=== PATIENT | female | born 1965 | race Hispanic/Latino ===

== ENCOUNTER 2019-04-05 12:56 | Emergency (ER) | payer OTHER ==
[~2019-04-05 12:56] MED LIST: AMOX-426 PO; METR500T PO
[2019-04-05] MEDS ORDERED: KETOROLAC TROMETHAMINE 60 MG/2 ML VIAL ONE (13:55)
[2019-04-05] MEDS ORDERED: ONDANSETRON ODT 4 MG TAB ONE (13:56)
[2019-04-05 14:00] LABS: BASOPHILS % (AUTO) 0.3 % (0.0-5.0); EOSINOPHILS % (AUTO) 0.4 % (0.0-8.0); HEMATOCRIT 40.6 % (36-48); LYMPHOCYTES % (AUTO) 12.9 % (21.0-51.0); MEAN CORPUSCULAR HEMOGLOBIN 24.4 pg (27.0-33.0); MEAN CORPUSCULAR HGB CONC 30.3 g/dL (32.0-36.0); MEAN CORPUSCULAR VOLUME 80.6 fL (79-99); MONOCYTES % (AUTO) 4.1 % (3.0-13.0); PLATELET COUNT (AUTO) 324 K/uL (130-400); RED BLOOD CELL COUNT(AUTO) 5.04 MIL/uL (4.00-5.50); RED CELL DISTRIBUTION WIDTH 14.7 % (11.0-15.5); WHITE BLOOD COUNT (AUTO) 14.3 K/uL (4.8-10.8)
[2019-04-05 14:09] LABS: CREATININE 0.9 mg/dL (0.5-1.5); POTASSIUM 4.7 mmol/L (3.5-5.1)
[2019-04-05 14:12] LABS: APPEARANCE,URINE Turbid (CLEAR); BILIRUBIN,URINE Negative (NEGATIVE); COLOR,URINE Yellow (YELLOW); GLUCOSE, URINE (UA) Negative (NEGATIVE); KETONES,URINE 15 mg/dL (NEGATIVE); LEUKOCYTE ESTERASE ,URINE Negative (NEGATIVE); NITRATE,URINE Negative (NEGATIVE); OCCULT BLOOD,URINE Moderate (NEGATIVE); PH,URINE 7.5 (5.0-8.0); PROTEIN,URINE Trace mg/dL (NEGATIVE)
[2019-04-05 14:14] LABS: ALBUMIN 4.1 g/dL (3.5-5.0); BILIRUBIN,TOTAL 0.3 mg/dL (0.2-1.0); TOTAL PROTEIN, SERUM 8.5 g/dL (6.0-8.3)
[2019-04-05 14:35] LABS: BACTERIA,URINE Few /HPF (None Seen); SQUAMOUS EPITHELIAL CELL,UR Rare /HPF (0-2); WBC,URINE 0-1 /HPF (0-1)
== END 2019-04-05 17:59 | disposition home or self-care (01) ==
LOC: EDH 12:56
DX: N13.2 Hydronephrosis with renal and ureteral calculous obstruction (principal); I10 Essential (primary) hypertension; E78.00 Pure hypercholesterolemia, unspecified; Z90.49 Acquired absence of other specified parts of digestive tract; Z98.890 Other specified postprocedural states
CPT/HCPCS: 36415; 74176; 80053; 81001; 83690; 85025; 96372; 99284; J1885

== ENCOUNTER 2019-08-07 00:25 | Emergency (ER) | payer OTHER ==
[2019-08-07] MEDS ORDERED: SODIUM CHLORIDE 0.9% 1000ML 1,000 ML IV ONE (00:42)
[2019-08-07] MEDS ORDERED: ONDANSETRON HCL 4 MG/2 ML VIAL ONE (00:42)
[2019-08-07 00:50] LABS: APPEARANCE,URINE Clear (CLEAR); BILIRUBIN,URINE Negative (NEGATIVE); COLOR,URINE Yellow (YELLOW); GLUCOSE, URINE (UA) Negative (NEGATIVE); KETONES,URINE Negative (NEGATIVE); LEUKOCYTE ESTERASE ,URINE Negative (NEGATIVE); NITRATE,URINE Negative (NEGATIVE); OCCULT BLOOD,URINE Nonhemolyzed Trace (NEGATIVE); PH,URINE 6.5 (5.0-8.0); PROTEIN,URINE Negative (NEGATIVE)
[2019-08-07 00:55] LABS: BASOPHILS % (AUTO) 0.4 % (0.0-5.0); EOSINOPHILS % (AUTO) 1.1 % (0.0-8.0); HEMATOCRIT 39.3 % (36-48); LYMPHOCYTES % (AUTO) 14.4 % (21.0-51.0); MEAN CORPUSCULAR HEMOGLOBIN 24.7 pg (27.0-33.0); MEAN CORPUSCULAR HGB CONC 30.8 g/dL (32.0-36.0); MEAN CORPUSCULAR VOLUME 80.4 fL (79-99); MONOCYTES % (AUTO) 3.8 % (3.0-13.0); PLATELET COUNT (AUTO) 323 K/uL (130-400); RED BLOOD CELL COUNT(AUTO) 4.89 MIL/uL (4.00-5.50); RED CELL DISTRIBUTION WIDTH 14.5 % (11.0-15.5); WHITE BLOOD COUNT (AUTO) 16.3 K/uL (4.8-10.8)
[2019-08-07 01:08] LABS: BACTERIA,URINE Rare /HPF (None Seen); SQUAMOUS EPITHELIAL CELL,UR None Seen /HPF (0-2); WBC,URINE 0-1 /HPF (0-1)
[2019-08-07 01:21] LABS: ALBUMIN 3.9 g/dL (3.5-5.0); BILIRUBIN,DIRECT 0.1 mg/dL (0.0-0.3); BILIRUBIN,TOTAL 0.3 mg/dL (0.2-1.0); POTASSIUM 4.3 mmol/L (3.5-5.1); TOTAL PROTEIN, SERUM 8.1 g/dL (6.0-8.3)
[2019-08-07] MEDS ORDERED: FENTANYL CITRATE PF 50 MCG/1 ML 2ML VIAL ONE (01:52)
== END 2019-08-07 02:53 | disposition home or self-care (01) ==
LOC: EDH 00:25
DX: N13.2 Hydronephrosis with renal and ureteral calculous obstruction (principal); R11.2 Nausea with vomiting, unspecified; I10 Essential (primary) hypertension; E78.5 Hyperlipidemia, unspecified; Z88.6 Allergy status to analgesic agent; Z85.3 Personal history of malignant neoplasm of breast; Z90.49 Acquired absence of other specified parts of digestive tract; Z98.890 Other specified postprocedural states
CPT/HCPCS: 36415; 74176; 80048; 80076; 81001; 82550; 83690; 84484; 85025; 93005; 96361; 96374; 96375; 99285; J2405; J3010; J7030

== ENCOUNTER 2024-04-19 17:38 | Observation (INO) | payer BC, OTHER ==
[~2024-04-19] VITALS: Ht 149.9 cm; Wt 67.1 kg
--- NOTE | 2024-04-19 17:38 | NUR ---
EKG PERFORMED AT TIME OF TRIAGE
[2024-04-19 18:08] LABS: BASOPHILS # (AUTO) 0.05 K/uL (0.00-0.20); BASOPHILS % (AUTO) 0.4 % (0.0-5.0); EOSINOPHILS % (AUTO) 4.3 % (0.0-8.0); HEMATOCRIT 43.7 % (36-48); IMMATURE GRANULOCYTE ABSOLUTE 0.02 K/uL (0-1); LYMPHOCYTES # (AUTO) 5.3 K/uL (1.0-4.8); LYMPHOCYTES % (AUTO) 45.9 % (21.0-51.0); MEAN CORPUSCULAR HEMOGLOBIN 26.2 pg (27.0-33.0); MEAN CORPUSCULAR HGB CONC 30.7 g/dL (32.0-36.0); MEAN CORPUSCULAR VOLUME 85.4 fL (79-99); MONOCYTES # (AUTO) 0.7 K/uL (0.1-1.0); MONOCYTES % (AUTO) 6.3 % (3.0-13.0); NEUTROPHILS % (AUTO) 42.9 % (40.0-77.0); PLATELET COUNT (AUTO) 300 K/uL (130-400); RED BLOOD CELL COUNT(AUTO) 5.12 MIL/uL (4.00-5.50); RED CELL DISTRIBUTION WIDTH 14.2 % (11.0-15.5); WHITE BLOOD COUNT (AUTO) 11.6 K/uL (4.8-10.8)
[2024-04-19 18:14] LABS: CREATININE 0.6 mg/dL (0.5-1.0); POTASSIUM 3.3 mmol/L (3.5-5.1)
[2024-04-19 18:28] LABS: B-TYPE NATRIURETIC PEPTIDE 20 pg/mL (0-100)
[2024-04-19 18:30] LABS: MAGNESIUM 1.8 mg/dL (1.80-2.40)
--- NOTE | 2024-04-19 18:31 | ERN ---
General Chief Complaint: Abnormal Labs Stated Complaint: ABNORMAL EKG Time Seen by MD: 17:55 Source: patient History of Present Illness Initial Comments PATIENT IS A 59-YEAR-OLD FEMALE COMING IN TO BE EVALUATED BECAUSE HER PRIMARY CARE PHYSICIAN SENT HER IN. PER PATIENT SHE WAS SEEN BY HER PRIMARY CARE PHYSICIAN AND TOLD TO SEEK IMMEDIATE HELP WITH THE NEAREST ER. SHE WAS TOLD THAT THERE WAS ABNORMAL EKG SIGNIFICANT FOR AN MYOCARDIAL INFARCT. PATIENT WAS NOT HAVING ANY CHEST PAIN BUT DID HAVE TWO EPISODES OF NEAR-SYNCOPE IN THE PAST MONTH. Allergies: Coded Allergies: hydrocodone (Unverified Allergy, Mild, ITCHING, 06/28/14) ibuprofen (Unverified Allergy, Unknown, 08/07/19) Home Meds Active Scripts Metronidazole (Flagyl) 500 Mg Tablet, 500 MG PO BID, #14 TAB Prov:SISI QUIÑONES MD 06/30/14 Amoxicillin/Potassium Clav (Augmentin 500-125 Tablet) 1 Each Tablet, 1 EACH PO BID, #14 TAB Prov:SISI QUIÑONES MD 06/30/14 Past Medical History Past Medical History: Diabetes-Type II, High Cholesterol, Hypertension Past Surgical History: Appendectomy, Cholecystectomy, Other, Surgical History Other: LEFT BREAST, ROS Dictation CONSTITUTIONAL: NO CHILLS, NO FEVER, NO WEAKNESS, NO DIAPHORESIS, NO MALAISE. HEAD/FACE: NO SIGNS OF TRAUMA. EENT: NO EYE PAIN, NO BLURRED VISION, NO TEARING, NO DOUBLE VISION, NO EAR PAIN, NO EAR DISCHARGE, NO NOSE PAIN, NO NASAL CONGESTION, NO THROAT PAIN, NO THROAT SWELLING, NO MOUTH PAIN. RESPIRATORY: NO COUGH, NO ORTHOPNEA, NO SOB, NO STRIDOR, NO WHEEZING. CARDIOVASCULAR: NO CHEST PAIN, NO EDEMA, NO PALPITATIONS, NO SYNCOPE. GASTROINTESTINAL/ABDOMINAL: NO ABDOMINAL PAIN, NO CONSTIPATION, NO DIARRHEA, NO NAUSEA, NO VOMITING. GENITOURINARY: NO ABNORMAL DISCHARGE, NO DYSURIA, NO FREQUENT URINATION, NO HEMATURIA. NO COMPLAINTS OF PAIN IN THE GENITALS. MUSCULOSKELETAL: NO BACK PAIN, NO GOUT, NO JOINT PAIN, NO JOINT SWELLING, NO MUSCLE PAIN, NO MUSCLE STIFFNESS, NO NECK PAIN. INTEGUMENTARY: NO CHANGE IN COLOR, NO CHANGE IN HAIR/NAILS, NO DRYNESS, NO LESION, NO LUMPS, NO RASH. NEUROLOGICAL/PSYCH: NO ANXIETY, NOT DEPRESSED, NO EMOTIONAL PROBLEM, NO H EADACHE, NO NUMBNESS, NO PRE-EXISTING DEFICIT, NO HISTORY OF SEIZURES, NO TREMORS, NO WEAKNESS. HEMATOLOGIC/LYMPHATIC: NOT ANEMIC, NO HISTORY OF BLOOD CLOTS, NO APPARENT BLEEDING, NO BRUISING, GLANDS NOT SWOLLEN. ALL SYSTEMS NEGATIVE, EXCEPT NOTED. Physical Exam Physical Exam Dictation VITAL SIGNS: REVIEWED. GENERAL APPEARANCE: ALERT, ORIENTED X3, NO ACUTE DISTRESS, OBESE. HEAD AND FACE: NON-TRAUMATIC. EYES: PERRL, PINK CONJUNCTIVAS, EYELID NO TRAUMA, ANTERIOR CHAMBER CLEAR. EARS: PINNAS INTACT AND NO SIGNS OF TRAUMA OR ERYTHEMA. EAR CANALS CLEAR AND NO DISCHARGE. TMS NO ERYTHEMA. NOSE: NO DISCHARGE, NO BLEEDING. OROPHARYNX: MOUTH NORMAL, TEETH NO CARIES, TONGUE PINK. PHARYNX CLEAR, NO ERYTHEMA. TONSILS NO EXUDATES, NO ABSCESSES NOTED. MUCOUS MEMBRANE MOIST. NECK: SUPPLE, NON-TENDER, NO THYROMEGALY, NO MASSES, NO JVD, NO BRUITS. BREAST: DEFERRED. CHEST: NO TENDERNESS, NO CREPITUS, NO PARADOXICAL MOVEMENT, NO RETRACTIONS. LUNGS: CLEAR, WELL-VENTILATED, SYMMETRIC, NO RALES, NO WHEEZING, NO RHONCHI, NO STRIDOR, GOOD BREATH SOUNDS BILATERALLY. HEART: REGULAR RATE, REGULAR RHYTHM, NO MURMUR, NO GALLOPS. VASCULAR: NO PERIPHERAL EDEMA. ABDOMEN: SOFT, POSITIVE BOWEL SOUNDS, NONDISTENDED, NO GUARDING, NONTENDER, NO REBOUND, NO MASSES NO HEPATOMEGALY, NO SPLENOMEGALY, NO HERNANDEZ'S SIGN, NO HERNIAS. RECTAL: DEFERRED. GENITAL: DEFERRED. NEUROLOGICAL: NORMAL SPEECH, GROSS MOTOR FUNCTION INTACT, GROSS SENSORY FUNCTION INTACT. MUSCULOSKELETAL: NECK NONTENDER, FULL RANGE OF MOTION, BACK NONTENDER, FULL RANGE OF MOTION. EXTREMITIES: NONTENDER, FULL RANGE OF MOTION. SKIN: COLOR PINK, DRY, NO TURGOR, NO RASH, NO LACERATIONS, NO ABRASIONS, NO CONTUSIONS. LYMPHATICS: DEFERRED. Results Laboratory and Microbiology Lab and Micro Result Laboratory Tests Test 04/19/24 17:58 04/19/24 18:00 White Blood Count 11.6 K/uL (4.8-10.8) H Red Blood Count 5.12 MIL/uL (4.00-5.50) Hemoglobin 13.4 g/dL (12.0-16.0) Hematocrit 43.7 % (36-48) Mean Corpuscular Volume 85.4 fL (79-99) Mean Corpuscular Hemoglobin 26.2 pg (27.0-33.0) L Mean Corpuscular Hemoglobin Concent 30.7 g/dL (32.0-36.0) L Red Cell Distribution Width 14.2 % (11.0-15.5) Platelet Count 300 K/uL (130-400) Mean Platelet Volume 10.7 fL (7.5-10.5) H Immature Granulocyte % (Auto) 0.2 % (0-1) Neutrophils (%) (Auto) 42.9 % (40.0-77.0) Lymphocytes (%) (Auto) 45.9 % (21.0-51.0) Monocytes (%) (Auto) 6.3 % (3.0-13.0) Eosinophils (%) (Auto) 4.3 % (0.0-8.0) Basophils (%) (Auto) 0.4 % (0.0-5.0) Neutrophils # (Auto) 5.0 K/uL (1.8-7.7) Lymphocytes # (Auto) 5.3 K/uL (1.0-4.8) H Monocytes # (Auto) 0.7 K/uL (0.1-1.0) Eosinophils # (Auto) 0.50 K/uL (0.00-0.70) Basophils # (Auto) 0.05 K/uL (0.00-0.20) Absolute Immature Granulocyte (auto 0.02 K/uL (0-1) Nucleated Red Blood Cells 0.0 % (0.0-0.19) Sodium Level 139 mmol/L (136-145) Potassium Level 3.3 mmol/L (3.5-5.1) L Chloride Level 102 mmol/L (101-111) Carbon Dioxide Level 31 mmol/L (21-32) Blood Urea Nitrogen 22 mg/dL (7-18) H Creatinine 0.6 mg/dL (0.5-1.0) Glomerular Filtration Rate Calc 102 mL/min (>90) Random Glucose 102 mg/dL (70-105) Total Calcium 9.0 mg/dL (8.5-10.1) Magnesium Level 1.80 mg/dL (1.80-2.40) Troponin I High Sensitivity < 4 ng/L (4-50) L B-Type Natriuretic Peptide 20 pg/mL (0-100) Urine Color LIGHT-YELLOW (YELLOW) Urine Appearance CLEAR (CLEAR) Urine pH 6.5 (5.0-8.0) Urine Specific [place] 1.014 (1.001-1.031) Urine Protein NEGATIVE mg/dL (NEGATIVE) Urine Glucose (UA) NEGATIVE mg/dL (NEGATIVE) Urine Ketones NEGATIVE mg/dL (NEGATIVE) Urine Occult Blood NEGATIVE (NEGATIVE) Urine Nitrate NEGATIVE (NEGATIVE) Urine Bilirubin NEGATIVE mg/dL (NEGATIVE) Urine Urobilinogen 0.2 mg/dL (0.2-1.0) Urine Leukocyte Esterase 25 Sheryl/uL (NEGATIVE) H Urine RBC 0-1 /HPF (0-1) Urine WBC 2-5 /HPF (0-1) H Urine Squamous Epithelial Cells RARE /HPF (0-2) Urine Bacteria RARE /HPF (None Seen) Labs Reviewed?: Yes EKG/XRAY/US/CT/MRI EKG Comment 04/19/2024 TIME 5:37 P.M. VENTRICULAR RATE [address] [place] [address] WAVE ELEVATION OR DEPRESSION MDM MDM: DIFFERENTIAL DIAGNOSIS: NEAR-SYNCOPE, EKG CHANGES, MULTIPLE PVCS, RATIONALE: TESTS CONSIDERED AND ORDERED SECONDARY TO SHARED DECISION MAKING INCLUDE: LABS, ECG AND RADIOLOGY PREVIOUS OUTSIDE RECORDS REVIEWED: OLD ER VISITS. RISK OF COMPLICATION AND/OR MORBIDITY OR MORTALITY OF PATIENT MANAGEMENT: NONE MEDICATIONS-PER MEDICATION RECONCILIATION NEED FOR HOSPITALIZATION: PATIENT DOES MEET CRITERIA FOR HOSPITALIZATION. NEED FOR EMERGENCY MAJOR/MINOR SURGERY: NO THERE ARE NO SOCIAL CONCERNS WITH THIS PATIENT. PRESCRIPTION DRUG MANAGEMENT PRESCRIPTIONS WILL INCLUDE SYMPTOMATIC CARE PATIENT'S PRIOR EXTERNAL MEDICAL RECORDS FROM OTHER ER VISITS WERE REVIEWED BY ME INDICATED. PRIOR TESTING AND RESULTS FROM PREVIOUS VISITS WERE REVIEWED. PRIOR TESTS WERE TAKEN INTO ACCOUNT WITH MEDICAL DECISION MAKING AND RESOURCE UTILIZATION, INDEPENDENT HISTORIAN/HISTORIANS WERE USED TO OBTAIN COMPLETE MEDICAL HISTORY. I INDEPENDENTLY INTERPRETED THE TEST THAT WERE PERFORMED, RESULTS WERE REVIEWED BY ME AND CONSIDERED FINDINGS ON RADIOLOGY IF ORDERED. MEDICAL MANAGEMENT AND EXAMINATION INTERPRETATION DISCUSSIONS WERE HAD BY ME WITH OTHER QUALIFIED HEALTHCARE PROFESSIONALS INDICATED FOR THE PATIENT'S CARE. PATIENT IS A 59-YEAR-OLD FEMALE SENT BY PCP FOR AN ABNORMAL EKG. PER PATIENT SHE WAS SENT OVER DUE TO AN ABNORMAL EKG WHICH COULD REPRESENT AN RI. EKG DID NOT DISCLOSE ACUTE FINDINGS. PATIENT WILL BE ADMITTED UNDER THE CARE OF [facility] FOR ONGOING MANAGEMENT. ED Course Orders Procedure Category Date Status Time Cbc With Differential LAB 04/19/24 In Process 17:49 Basic Metabolic Panel LAB 04/19/24 Complete 17:49 12 Lead Ekg Tracing- EKG 04/19/24 Logged Technical 17:49 Troponin I High LAB 04/19/24 Complete Sensitivity 17:49 Chest 1vw RAD 04/19/24 Taken 17:49 B-Type Natriuretic LAB 04/19/24 In Process Peptide 17:49 Magnesium LAB 04/19/24 Complete 17:49 Urinalysis Profile LAB 04/19/24 Complete 18:03 Manual Differential LAB 04/19/24 In Process 17:58 Potassium Bicarb/Cit PHA 04/19/24 Logged Ac 25meq (K-Lyte Ta 19:00 Current Medications Medications (Trade) Dose Ordered Sig/Giancarlo Route PRN Reason Start Time Stop Time Status Last Admin Dose Admin Potassium Bicarbonate (K-Lyte Tablet Eff 25 Meq Tablet.eff) 50 meq ONCE ONCE PO 04/19/24 19:00 04/19/24 19:01 UNV Vital Signs Date Time Temp Pulse Resp B/P (MAP) Pulse Ox O2 Delivery O2 Flow Rate FiO2 04/19/24 18:31 97.9 84 19 144/79 98 Room Air* 0 21 04/19/24 18:02 82 16 140/80 98 Room Air* 0 21 04/19/24 17:40 98.1 89 16 168/87 97 Room Air DX & DISP Disposition: Inpatient Decision to Admit Time: 18:47 Departure Impression: Primary Impression: Near syncope Additional Impressions: Acute electrocardiogram changes, Urinary tract infection, site not specified Condition: Stable Referrals: KIKE ALVA (PCP) VIKAS POOLE MD Apr 19, 2024 18:30
[2024-04-19 18:42] LABS: APPEARANCE,URINE CLEAR (CLEAR); BILIRUBIN,URINE NEGATIVE (NEGATIVE); COLOR,URINE LIGHT-YELLOW (YELLOW); GLUCOSE, URINE (UA) NEGATIVE (NEGATIVE); KETONES,URINE NEGATIVE (NEGATIVE); LEUKOCYTE ESTERASE ,URINE 25 Leu/uL (NEGATIVE); NITRATE,URINE NEGATIVE (NEGATIVE); OCCULT BLOOD,URINE NEGATIVE (NEGATIVE); PH,URINE 6.5 (5.0-8.0); PROTEIN,URINE NEGATIVE (NEGATIVE); UROBILINOGEN,URINE 0.2 mg/dL (0.2-1.0)
[2024-04-19 18:43] LABS: ADD UA MICROSCOPIC YES
[2024-04-19 18:45] LABS: BACTERIA,URINE RARE /HPF (None Seen); MUCUS,URINE RARE LPF (None Seen); RBC,URINE 0-1 /HPF (0-1); SQUAMOUS EPITHELIAL CELL,UR RARE /HPF (0-2)
--- NOTE | 2024-04-19 18:58 | HMCIMG ---
PORTABLE CHEST RADIOGRAPH INDICATION: ABN EKG COMPARISON: None FINDINGS: grain trader leads overlie the field of view. Heart size is normal. The pulmonary vascularity and simon appear normal. No abnormal pulmonary parenchymal opacity or consolidation identified. No significant pleural effusion noted. No pneumothorax detected. IMPRESSION: No radiographic evidence for any acute cardiopulmonary process.
[2024-04-19 19:04] LABS: BASOPHILS % (MANUAL) 1 % (0-2); EOSINOPHILS % (MANUAL) 1 % (1-6); LYMPHOCYTES % (MANUAL) 36 % (22-44); MONOCYTES % (MANUAL) 6 % (2-9); REACTIVE LYMPHOCYTES 1 % (0-0); SEGMENTED NEUTROPHILS % 55 % (40-70); TOTAL CELLS COUNTED 100
[2024-04-19 19:05] LABS: MAN.DIFF COMMENT-IMPRESSION MANUAL DIFFERENTIAL; PLATELET MORPHOLOGY COMMENT ADEQUATE
--- NOTE | 2024-04-19 19:16 | NUR ---
REPORT GIVEN TO KIMI COVARRUBIAS
[2024-04-19] MEDS: PoTASSium BIcarbonate/CIT AC 25 MEQ TABLET.EFF PO SCH (19:30)
--- NOTE | 2024-04-19 20:49 | NUR ---
ORTHO VS: LYING 108/69 SITTIN/73 STANDIN/75
[2024-04-19] MEDS ORDERED: PREG50CA64 PO (20:52)
[2024-04-19] MEDS ORDERED: PREG75CA76 PO ×2 (20:52)
[2024-04-19] MEDS ORDERED: AMLO-257 PO (20:52)
[2024-04-19] MEDS ORDERED: OMEP40CA21 PO (20:52)
--- NOTE | 2024-04-19 21:32 | EKG ---
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
--- NOTE | 2024-04-19 22:07 | HP ---
[facility] HISTORY & PHYSICAL Date Patient Seen: Apr 19, 2024 Time of Visit: 22:06 Supervising Physician: Dr. Cheryl Patten Primary Care Physician: Dr Huang Outpatient Specialists: [ ] Inpatient Consults: [ ] PROBLEM LIST: Premature ventricular contraction, POA Hypokalemia, POA Near-syncope, POA Leukocytosis, POA Hypertension, POA DM type 2, POA Hyperlipidemia, POA PLAN: Admit to medical-surgical floor VS per unit protocol Heart healthy diet Up ad abigail Stat EKG if with chest pain Bilateral SCDs ISS and fingerstick per unit protocol Keep systolic blood pressure less than 160 P.r.n. hydralazine and labetalol CBC, CMP, magnesium level daily HPI: 59-year-old female with past medical history of breast cancer as s/p left mastectomy, chemotherapy currently on remission, hypertension, hyperlipidemia, DM type 2 was asked by her PCP to come to ED for further medical evaluation. Apparently patient has been having issues with dizziness and near- syncope, couple of days ago she underwent EKG at doctor's clinic. Today she was called to come into ED for possible "heart attack". Patient was seen and examined in ED with no relatives present at bedside. EKG done in ER did not reveal any ST elevation UT, her initial troponin was also normal as well as unremarkable BNP. Patient denies any associated symptoms like chest pain, shortness of breath, cough, or flu-like symptoms. Chest x-ray done in ED did not reveal any acute infiltrates, her CBC was also unremarkable for any acute anemia, her chemistry significant for potassium level of 0.3, which was repleted in ED. At present patient is currently hemodynamically stable, on room air with appropr iate oxygen saturation, denies any headache, chest pain, shortness of breath, abdominal pain, flu-like symptoms, dysuria, diarrhea,. Patient is vaccinated against COVID virus in his flu shot is up-to-date. Denies any smoking, alcohol intake, or illicit drug use. PAST MEDICAL HX: see above PAST SURGICAL HX: noncontributory SOCIAL HISTORY: No tobacco, ETOH, or illicit drug use Coded Allergies: hydrocodone (Unverified Allergy, Mild, ITCHING, 06/28/14) ibuprofen (Unverified Allergy, Unknown, 08/07/19) REVIEW OF SYSTEMS: 12 point ROS reviewed with patient. Pertinent positives mentioned above. Otherwise negative. PHYSICAL EXAM: GENERAL: alert, weak, awake oriented x 3 HEENT: EOMI, Sclera non icteric, moist mucosa NECK: Supple, no JVD, trachea midline LUNGS: Clear breath sounds bilaterally. No wheezes HEART: Regular rate and rhythm. Normal S1 and S2, without murmurs ABD: Abdomen soft, nontender. Bowel sounds present EXT: No clubbing cyanosis or edema NEURO: Alert and oriented to person, follows commands Vital Signs (last 8hr) Date Time Temp Pulse Resp B/P (MAP) Pulse Ox O2 Delivery O2 Flow Rate FiO2 04/19/24 20:48 98.2 80 19 135/56 97 Room Air* 0 21 04/19/24 18:31 97.9 84 19 144/79 98 Room Air* 0 21 04/19/24 18:02 82 16 140/80 98 Room Air* 0 21 04/19/24 17:40 98.1 89 16 168/87 97 Room Air LABS: Hematology Labs: Test 04/19/24 17:58 Range/Units White Blood Count 11.6 H 4.8-10.8 K/uL Red Blood Count 5.12 4.00-5.50 MIL/uL Hemoglobin 13.4 12.0-16.0 g/dL Hematocrit 43.7 36-48 % Mean Corpuscular Volume 85.4 79-99 fL Mean Corpuscular Hemoglobin 26.2 L 27.0-33.0 pg Mean Corpuscular Hemoglobin Concent 30.7 L 32.0-36.0 g/dL Red Cell Distribution Width 14.2 11.0-15.5 % Platelet Count 300 130-400 K/uL Mean Platelet Volume 10.7 H 7.5-10.5 fL Immature Granulocyte % (Auto) 0.2 0-1 % Neutrophils (%) (Auto) 42.9 40.0-77.0 % Lymphocytes (%) (Auto) 45.9 21.0-51.0 % Monocytes (%) (Auto) 6.3 3.0-13.0 % Eosinophils (%) (Auto) 4.3 0.0-8.0 % Basophils (%) (Auto) 0.4 0.0-5.0 % Neutrophils # (Auto) 5.0 1.8-7.7 K/uL Lymphocytes # (Auto) 5.3 H 1.0-4.8 K/uL Monocytes # (Auto) 0.7 0.1-1.0 K/uL Eosinophils # (Auto) 0.50 0.00-0.70 K/uL Basophils # (Auto) 0.05 0.00-0.20 K/uL Absolute Immature Granulocyte (auto 0.02 0-1 K/uL Segmented Neutrophils % 55 40-70 % Lymphocytes % (Manual) 36 22-44 % Monocytes % (Manual) 6 2-9 % Eosinophils % (Manual) 1 1-6 % Basophils % (Manual) 1 0-2 % Nucleated Red Blood Cells 0.0 0.0-0.19 % Differential Comment MANUAL DIFFERENTIAL Reactive Lymphocytes 1 H 0-0 % White Cell Morphology Comment Platelet Morphology Comment ADEQUATE Red Blood Cell Morphology ANISO 1+ Chemistry Labs: Test 04/19/24 17:58 Range/Units Sodium Level 139 136-145 mmol/L Potassium Level 3.3 L 3.5-5.1 mmol/L Chloride Level 102 101-111 mmol/L Carbon Dioxide Level 31 21-32 mmol/L Blood Urea Nitrogen 22 H 7-18 mg/dL Creatinine 0.6 0.5-1.0 mg/dL Glomerular Filtration Rate Calc 102 >90 mL/min Random Glucose 102 70-105 mg/dL Total Calcium 9.0 8.5-10.1 mg/dL Magnesium Level 1.80 1.80-2.40 mg/dL Troponin I High Sensitivity < 4 L 4-50 ng/L B-Type Natriuretic Peptide 20 0-100 pg/mL DIAGNOSTICS / RADIOLOGY RESULTS: PORTABLE CHEST RADIOGRAPH INDICATION: ABN EKG COMPARISON: None FINDINGS: court monitor leads overlie the field of view. Heart size is normal. The pulmonary vascularity and simon appear normal. No abnormal pulmonary parenchymal opacity or consolidation identified. No significant pleural effusion noted. No pneumothorax detected. IMPRESSION: No radiographic evidence for any acute cardiopulmonary process. PLAN NEURO: Minimize central acting medications as possible. Maintain fall precautions, adequate lighting during the day PULMONARY: Supplemental 02 as needed. Maintain aspiration precautions at all times CARDIOVASCULAR: Follow hemodynamics. Vital signs per facility protocol GI & NUTRITION: Continue with nutritional support. Continue stool softeners and laxatives as needed. KIDNEYS & ELECTROLYTES: Strict monitoring of intake, output and overall fluid balance. Avoid nephrotoxic medications to the extent possible. Medications to be dosed according to renal function. Monitor electrolytes and replace as needed ENDOCRINE: Maintain blood glucose between 100-180 at all times. Hypoglycemia protocol in place INFECTIOUS DISEASE: Trend temperature, WBC and procalcitonin level Follow cultures, deescalate antibiotics as soon as possible. Panculture if new onset fever ONCOLOGY/HEMATOLOGY/COAGULATION: Monitor for s/s of bleeding Monitor hemoglobin, coagulation studies as needed SKIN: Pressure ulcer prevention per facility protocol Specialty mattress ORTHO/REHAB: Continue PT/OT Prophylaxis: Continue GI and DVT prophylaxis Code Status: Full Resuscitation Disposition: TBD Other: Total patient care time exceeds 35 minutes excluding all procedures. Supervising physician: WILLY Monge APRN Apr 19, 2024 22:07
[2024-04-19] MEDS ORDERED: acetaMINOPHEN 650 MG SUPPOSITORY RC PRN (22:30)
[2024-04-19] MEDS ORDERED: hydrALAZine 20MG/ML VIAL IV PRN (22:30)
[2024-04-19] MEDS ORDERED: ondanSETRON 4MG INJ IVP PRN (22:30)
[2024-04-19] MEDS ORDERED: ALBUTEROL 0.083% 2.5 MG/3 ML INH IH PRN (22:30)
[2024-04-19] MEDS ORDERED: LAbetaLOL 20MG SYG IV PRN (22:30)
[2024-04-19 23:40] VITALS: O2SAT 98
[2024-04-20 05:39] VITALS: O2SAT 97
[2024-04-20] MEDS: INSULIN humuLIN R 100 UNIT/ML 3ML SQ SCH (07:30)
[2024-04-20 08:00] VITALS: BP 135/70; PULSE 63; RESP 12; TEMP 98
[2024-04-20 08:04] VITALS: PULSE 79; RESP 18; O2SAT 97
[2024-04-20] MEDS ORDERED: LOSA25TA41 PO (08:42)
[2024-04-20] MEDS ORDERED: EZET10TA81 PO (08:42)
[2024-04-20] MEDS ORDERED: SITA50TA PO (08:42)
[2024-04-20] MEDS: FAMOTIDINE 20MG TAB PO SCH (09:00)
[2024-04-20] MEDS: doCUSate SODIUM 100 MG CAP PO SCH (09:00)
[2024-04-20] MEDS: ENOXAPARIN SODIUM 40 MG/0.4 ML SYRINGE SQ SCH (09:00)
[2024-04-20 09:35] LABS: BASOPHILS # (AUTO) 0.06 K/uL (0.00-0.20); BASOPHILS % (AUTO) 0.7 % (0.0-5.0); EOSINOPHILS # (AUTO) 0.43 K/uL (0.00-0.70); EOSINOPHILS % (AUTO) 4.8 % (0.0-8.0); HEMATOCRIT 43.2 % (36-48); IMMATURE GRANULOCYTE ABSOLUTE 0.02 K/uL (0-1); LYMPHOCYTES # (AUTO) 3.8 K/uL (1.0-4.8); LYMPHOCYTES % (AUTO) 42.2 % (21.0-51.0); MEAN CORPUSCULAR HEMOGLOBIN 26.6 pg (27.0-33.0); MEAN CORPUSCULAR VOLUME 85.7 fL (79-99); MONOCYTES # (AUTO) 0.6 K/uL (0.1-1.0); MONOCYTES % (AUTO) 6.4 % (3.0-13.0); NEUTROPHILS # (AUTO) 4.1 K/uL (1.8-7.7); NEUTROPHILS % (AUTO) 45.7 % (40.0-77.0); PLATELET COUNT (AUTO) 277 K/uL (130-400); RED BLOOD CELL COUNT(AUTO) 5.04 MIL/uL (4.00-5.50); RED CELL DISTRIBUTION WIDTH 14.5 % (11.0-15.5)
[2024-04-20 09:45] LABS: CREATININE 0.5 mg/dL (0.5-1.0); PHOSPHORUS 3.6 mg/dL (2.5-4.9); POTASSIUM 3.6 mmol/L (3.5-5.1)
[2024-04-20] MEDS: PoTASSium chl 10% ELIXIR 20MEQ 20 MEQ/15 ML UDCUP ONE (11:40)
[2024-04-20] MEDS: acetaMINOPHEN 325 MG TAB PO PRN (12:02)
[2024-04-20 13:02] VITALS: TEMP 98.1
[2024-04-20 14:34] VITALS: BP 11/61; PULSE 71; RESP 16; TEMP 98.5
[2024-04-20] MEDS ORDERED: ATOR10 PO (14:54)
[2024-04-20] MEDS ORDERED: ASPI-1005 PO (14:54)
[2024-04-20] MEDS ORDERED: CEPH500B PO (14:56)
--- NOTE | 2024-04-20 14:58 | DS ---
[facility] DISCHARGE SUMMARY Date Patient Seen: Apr 20, 2024 Time of Visit: 14:54 Supervising Physician: BLANCA NGUYEN Primary Care Physician: Dr Huang Outpatient Specialists: [ ] Inpatient Consults: [ ] PROBLEM LIST: Abnormal EKG concern for ACS, ruled out Hypokalemia, POA,resolved hx Near-syncope, POA , asymptomatic UTI , with leukocytosis , improved Hypertension, POA DM type 2, POA Hyperlipidemia, POA HOSPITAL COURSE: 59-year-old female with past medical history of breast cancer as s/p left mastectomy, chemotherapy currently on remission, hypertension, hyperlipidemia, DM type 2 was asked by her PCP to come to ED for further medical evaluation. Apparently patient has been having issues with dizziness and near- syncope, couple of days ago she underwent EKG at doctor's clinic. Today she was called to come into ED for possible "heart attack". Patient was seen and examined in ED with no relatives present at bedside. EKG done in ER did not reveal any ST elevation MD, her initial troponin was also normal as well as unremarkable BNP. Patient denies any associated symptoms like chest pain, shortness of breath, cough, or flu-like symptoms. Chest x-ray done in ED did not reveal any acute infiltrates, her CBC was also unremarkable for any acute anemia, her chemistry significant for potassium level of 0.3, which was repleted in ED. At present patient is currently hemodynamically stable, on room air with appropriate oxygen saturation, denies any headache, chest pain, shortness of breath, abdominal pain, flu-like symptoms, dysuria, diarrhea,. Patient is vaccinated against COVID virus in his flu shot is up-to-date. Denies any smoking, alcohol intake, or illicit drug use. Patient was admitted overnight. 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 Recommend outpatient stress test and CT calcium score Return precautions were given to the patient. Of note she was found to have UTI ; will be sent home antibiotic therapy with close follow up PCP. New Medications: Aspirin (Aspirin 81MG Chew Tab) 81 Mg Tab.chew 1 TAB PO DAILY for 30 Days, #30 TAB 0 Refills Atorvastatin Calcium (Lipitor) 20 Mg Tab 1 TAB PO HS for 30 Days, #30 TAB 0 Refills Cephalexin Monohydrate (Keflex) 500 Mg Cap 1 CAP PO BID for 5 Days, #20 CAP 0 Refills Continued Medications: Amlodipine Besylate (Amlodipine Besylate) 5 Mg Tablet 1 TAB PO DAILY for 30 Days, #30 TAB 0 Refills Ezetimibe (Zetia) 10 Mg Tablet 1 TAB PO DAILY for 30 Days, #30 TAB 0 Refills Losartan Potassium (Losartan Potassium) 25 Mg Tablet 1 TAB PO DAILY for 30 Days, #30 TAB 0 Refills Omeprazole (Omeprazole) 40 Mg Capsule.dr 1 CAP PO DAILY for 30 Days, #30 CAP 0 Refills Pregabalin (Pregabalin) 50 Mg Capsule 1 CAP PO AM MDD 2 Capsule(s) for 30 Days, #60 CAP 0 Refills Pregabalin (Pregabalin) 75 Mg Capsule 1 CAP PO NOON MDD 2 Capsule(s) for 30 Days, #60 CAP 0 Refills Pregabalin (Pregabalin) 75 Mg Capsule 1 CAP PO HS MDD 2 Capsule(s) for 30 Days, #60 CAP 0 Refills Sitagliptin Phosphate (Januvia) 50 Mg Tablet 1 TAB PO DAILY for 30 Days, #30 TAB 0 Refills PHYSICAL EXAM: GENERAL: alert, weak, awake oriented x 3 HEENT: EOMI, Sclera non icteric, moist mucosa NECK: Supple, no JVD, trachea midline LUNGS: Clear breath sounds bilaterally. No wheezes HEART: Regular rate and rhythm. Normal S1 and S2, without murmurs ABD: Abdomen soft, nontender. Bowel sounds present EXT: No clubbing cyanosis or edema NEURO: Alert and oriented to person, follows commands FOLLOW-UP: Follow-up with PCP in 2-3 days- has referral for cardilogist already. Pending appt. RECOMMENDATIONS: See Discharge Instructions This case was seen and discussed with my supervising physician. More than 30 minutes spent on discharge process, including evaluation of the patient, disc ussion with nursing staff, medication reconciliation and follow-up appointments CHANTE GALAVIZ Apr 20, 2024 14:58
[2024-04-21] MEDS ORDERED: LoSARTan 25 MG TABLET PO SCH (09:00)
[2024-04-21] MEDS ORDERED: PANTOPrazole 40 MG TAB DR PO SCH (09:00)
[2024-04-21] MEDS ORDERED: amLODIPine 5 MG TAB PO SCH (09:00)
[2024-04-21] MEDS ORDERED: pregABALin 25 MG CAP PO SCH (09:00)
[2024-04-21] MEDS ORDERED: (Sitagliptin Phosphate (Januvia) 1 TAB) PO SCH (09:00)
[2024-04-21] MEDS ORDERED: pregABALin 75 MG CAPSULE PO SCH (12:00)
== END 2024-04-20 16:10 | disposition home or self-care (01) ==
LOC: EDH 17:38 → INTOOBSV 22:02 → EDHIP 22:02
PROVIDERS: ADMIT Internal Medicine Critical Care Medicine; ATTEND Internal Medicine Critical Care Medicine
DX: N39.0 Urinary tract infection, site not specified (principal); D72.829 Elevated white blood cell count, unspecified; I10 Essential (primary) hypertension; E11.9 Type 2 diabetes mellitus without complications; E78.5 Hyperlipidemia, unspecified; R55 Syncope and collapse; E78.00 Pure hypercholesterolemia, unspecified; I49.3 Ventricular premature depolarization; Z90.12 Acquired absence of left breast and nipple; Z90.49 Acquired absence of other specified parts of digestive tract; Z79.84 Long term (current) use of oral hypoglycemic drugs; Z98.890 Other specified postprocedural states; Z79.899 Other long term (current) drug therapy
CPT/HCPCS: 99285; 83735 ×2; 84484 ×3; 80048 ×2; 83880; 85025 ×2; 81001; 36415 ×2; 71045; 93005; 94664; 96372; 84100; 82948; G0378 ×3; J1650